=== PATIENT | female | born 1975 | race Caucasian/White ===

== ENCOUNTER → 2017-03-31 | Outpatient (CLI) | payer OTHER ==
[2017-03-31 11:34] LABS: BASOPHIL % 0.5 % (0-2); PLATELET COUNT 303 x10^3mcL (130-400); RED CELL DISTRIBUTION WIDTH 12.5 % (11.5-14.5)
[2017-03-31 11:48] LABS: ALBUMIN 3.6 g/dL (3.4-5.0); ALKALINE PHOSPHATASE 56 U/L (46-116); ALT/SGPT 18 U/L (14-59); AST/SGOT 14 U/L (15-37); CALCIUM 8.7 mg/dL (8.5-10.1); CARBON DIOXIDE 27.6 mmol/L (21-32); CHLORIDE SERUM 107 mmol/L (98-107); CHOLESTEROL 184 mg/dL (<200); CHOLESTEROL/HDL RATIO 3.6; CREATININE SERUM 0.7 mg/dL (0.6-1.0); GFR1 > 60 mL/min; GLUCOSE SERUM 78 mg/dL (74-106); HDL CHOLESTEROL 51 mg/dL (40-60); POTASSIUM SERUM 4.4 mmol/L (3.5-5.1); SODIUM SERUM 141 mmol/L (136-145); TOTAL PROTEIN, SERUM 7.5 g/dL (6.4-8.2); TRIGLYCERIDES 116 mg/dL (<150)
[2017-03-31 11:50] LABS: T3 TOTAL 0.99 ng/mL
[2017-03-31 12:48] LABS: FREE T4 0.9 ng/dL (0.76-1.46); FREE THYROXINE INDEX 2.8 ug/dL (1.4-4.5); T4(THYROXINE) 8.4 ug/dL (4.7-13.3)
== END | disposition home or self-care (01) ==
LOC: LB 08:39
PROVIDERS: Family Medicine
DX: F32.9 Major depressive disorder, single episode, unspecified (principal); F41.1 Generalized anxiety disorder; E78.1 Pure hyperglyceridemia; Z87.42 Personal history of other diseases of the female genital tract
CPT/HCPCS: 82672; 84402; 84403; 84439